=== PATIENT | female | born 1985 | race African-American/Black ===

== ENCOUNTER 2017-08-12 10:32 | Emergency (ER) | payer OTHER ==
[~2017-08-12] VITALS: Ht 175.3 cm; Wt 160.8 kg
[2017-08-12 10:42] VITALS: BP 166/89; PULSE 63; TEMP 36.8; O2SAT 100; Ht 175.3 cm; Wt 160.8 kg
[2017-08-12] MEDS ORDERED: IBUPROFEN 600 MG TAB PO STA (11:00)
--- NOTE | 2017-08-12 11:57 | DIAGNOSTIC IMAGING REPORT ---
LEFT KNEE 3 VIEWS HISTORY: left knee pain/include sunrise COMPARISON: None. FINDINGS: There is no fracture or dislocation. No significant soft tissue swelling. Trace knee effusion. Mild osteoarthritis within the medial compartment of the left knee. Tiny infrapatellar density may be due to the normal vascular structures. IMPRESSION: No fractures. Trace knee effusion. Mild osteoarthritis. Electronically signed by: Barry Muñoz M.D. 08/12/2017 11:56 AM Dictated Date/Time: 08/12/2017 11:54 AM
--- NOTE | 2017-08-12 12:12 | EMERGENCY ROOM VISIT NOTE ---
ED Visit Note First contact with patient: 10:51 CHIEF COMPLAINT: Left knee pain HISTORY OF PRESENT ILLNESS: This 32-year-old female presents the ER with chief complaint of left knee pain for the last month and a half. The patient denies any known injury. The patient states that it swells and feels "tight". The patient states the pain is worse with going down steps. The patient tried an caxj-azw-ryqzzuk brace with slight relief of the pain. The patient states years ago her left knee cap dislocated on 2 different occasions. But the last time was at least 4 years ago. The patient denies any locking or giving out of the knee. The patient did not try to see her family physician for this problem. REVIEW OF SYSTEMS: 6 system review was performed and was negative unless stated otherwise in history of present illness. PMH: The patient is healthy; no significant past medical history SOCIAL HISTORY: Patient lives with her family. The patient denies tobacco use but admits to occasional alcohol use. PHYSICAL EXAM: Vital Signs: Were reviewed Reviewed Nurse's notes. GENERAL: 32- year-old obese female appears in no acute distress. MENTAL STATUS: Alert, oriented, and cooperative. LEFT: KNEE: No gross bony deformity noted. The patient's tenderness palpation over the patella. There is no joint effusion. She has full range of motion of the knee. There is no ligamentous instability. The skin is normal and intact. EMERGENCY DEPARTMENT COURSE: The patient was evaluated. Patient was given Motrin 600 mg by mouth for pain. X-ray of the left knee to include sunrise view was ordered and interpreted by the radiologist and myself. DIAGNOSTICS:LEFT KNEE 3 VIEWS HISTORY: left knee pain/include sunrise COMPARISON: None. FINDINGS: There is no fracture or dislocation. No significant soft tissue swelling. Trace knee effusion. Mild osteoarthritis within the medial compartment of the left knee. Tiny infrapatellar density may be due to the normal vascular structures. IMPRESSION: No fractures. Trace knee effusion. Mild osteoarthritis. Electronically signed by: Barry Muñoz M.D. 08/12/2017 11:56 AM Dictated Date/Time: 08/12/2017 11:54 AM The patient was informed of the findings. The patient was discharged home in stable condition. DIAGNOSIS: Left knee pain DISCHARGE INSTRUCTIONS: Ibuprofen 600 mg every 6 hours with food for pain. Avoid any strenuous exercise until evaluated by orthopedics. Call Dr. Hong today for follow-up appointment. Current/Historical Medications No Active Prescriptions or Reported Meds Allergies Coded Allergies: No Known Allergies (Unverified , 08/12/17) Vital Signs Date Time Temp Pulse Resp B/P (MAP) Pulse Ox O2 Delivery O2 Flow Rate FiO2 08/12/17 10:42 36.8 63 20 166/89 100 Room Air Medications Administered Medications (Trade) Dose Ordered Sig/Ana Route Start Time Stop Time Status Last Admin Dose Admin Ibuprofen (Motrin Tab) 600 mg NOW STAT PO 08/12/17 11:00 08/12/17 11:02 DC 08/12/17 11:10 600 MG Departure Information Prescriptions No Active Prescriptions or Reported Meds Referrals No Doctor, Assigned (PCP) Patient Instructions [facility]
== END 2017-08-12 12:30 | disposition home or self-care (01) ==
LOC: C.EDB 10:36 → C.EDD 12:30
DX: M25.562 Pain in left knee (principal)

== ENCOUNTER 2017-09-14 17:10 | Emergency (ER) | payer OTHER ==
[~2017-09-14] VITALS: Ht 175.3 cm; Wt 124.4 kg
[2017-09-14 17:11] VITALS: TEMP 38.6; Ht 175.3 cm; Wt 124.4 kg
[2017-09-14] MEDS ORDERED: SODIUM CHLORIDE 0.9% 1000ML 1,000 ML IV STA (17:23)
[2017-09-14] MEDS ORDERED: KETOROLAC TROMETHAMINE 30 MG/ML VIAL IV STA (17:24)
[2017-09-14] MEDS ORDERED: DIPH1POW PO (17:25)
[2017-09-14] MEDS ORDERED: IBUP-1050 PO (17:25)
[2017-09-14] MEDS ORDERED: [UNRECOGNIZED DRUG - CODE] MT (17:25)
[2017-09-14] MEDS ORDERED: MAGIC SWIZZLE PO ONE (17:30)
[2017-09-14 17:48] LABS: BASO % 0.3 %; BASO ABS # 0.03 K/uL (0-0.2); EOS % 0.6 %; EOS ABS # 0.07 K/uL (0-0.5); HEMATOCRIT 39.8 % (37-47); HEMOGLOBIN 12.3 g/dL (12.0-16.0); IG# 0.06 K/uL (0.00-0.02); LYMPH % 11.9 %; MEAN CELL VOLUME 75.7 fL (80-100); MEAN CORPUSCULAR HEMOGLOBIN 23.4 pg (25-34); MEAN CORPUSCULAR HGB CONC 30.9 g/dl (32-36); MEAN PLATELET VOLUME 10.4 fL (7.4-10.4); MONO % 7.2 %; MONO ABS # 0.85 K/uL (0.11-0.59); NEUT % 79.5 %; NEUT ABS # 9.35 K/uL (1.4-6.5); PLATELET COUNT 289 K/uL (130-400); RED CELL DISTRIBUTION WIDTH CV 15.8 % (11.5-14.5); RED CELL DISTRIBUTION WIDTH SD 43.3 fL (36.4-46.3); WHITE BLOOD COUNT 11.76 K/uL (4.8-10.8)
[2017-09-14] MEDS ORDERED: LIDOCAINE HCL 2% VISCOUS SOLN 1.25 ML, DiphenhydrAMINE HCL SYRUP 3.125 MG, ALUMINUM/MAG... MT SCH ×4 (18:00)
[2017-09-14 18:10] LABS: ALBUMIN 3.3 gm/dl (3.4-5.0); CALCIUM 8.6 mg/dl (8.5-10.1); CREATININE 0.92 mg/dl (0.60-1.20)
[2017-09-14 18:38] LABS: POTASSIUM 3.9 mmol/L (3.5-5.1); TOTAL PROTEIN 8.4 gm/dl (6.4-8.2)
[2017-09-14 18:46] LABS: INFLUENZA B ANTIGEN Neg for Influ B (NEG)
[2017-09-14] MEDS ORDERED: PENICILLIN V POTASSIUM 250 MG TAB PO ONE (19:15)
[2017-09-14] MEDS ORDERED: ACETAMINOPHEN 500 MG TAB PO STA (19:16)
[2017-09-14] MEDS ORDERED: PENI-82 PO (19:18)
[2017-09-14 19:22] VITALS: BP 127/93; PULSE 106; O2SAT 100
--- NOTE | 2017-09-14 21:03 | EMERGENCY ROOM VISIT NOTE ---
History Report prepared by Dillon: Edwina Newberry Under the Supervision of: Erna KeaneO. First contact with patient: 17:15 Chief Complaint: SORETHROAT Stated Complaint: SORE THROAT, CAN'T SWALLOW, EARS HURT, ABD HURTS History of Present Illness The patient is a 32 year old female who presents to the Emergency Room with complaints of a persistent sore throat for the past 2 days. She rates her discomfort as a 10/10 in severity. She states swallowing is extremely painful and she was unable to take Ibuprofen for her pain prior to arrival. She has not been coughing. She also complains of the chills, ear pain, abdominal pain and weakness. She has never undergone abdominal surgery before. The patient is up to date on her immunizations. She denies any chronic medical problems. The patient denies any headache, change in vision, fevers, chest pain, shortness of breath, nausea, vomiting, diarrhea, pain with urination, and melena. Source of History: patient Onset: 2 days NURSE ORTHOPEDIC Position: throat Symptom Intensity: 10/10 Timing: other (persistent) Modifying Factors (Worsening): other (swallowing) Associated Symptoms: + chills, + abdominal pain, + weakness, No fevers, No headache, No chest pain, No SOB, No nausea, No vomiting, No melena, No diarrhea , No urinary symptoms Review of Systems See HPI for pertinent positives & negatives. A total of 10 systems reviewed and were otherwise negative. Past Medical & Surgical Medical Problems: (1) No significant past medical history Social History Smoking Status: Never Smoker Alcohol Use: occasionally Drug Use: none Marital Status: Housing Status: lives with family Occupation Status: unemployed Current/Historical Medications Scheduled Penicillin V Potassium (Veetids), 500 MG PO TID Scheduled PRN Benzocaine-Menthol (Mouth-Thro (Chloraseptic), 1 IKER MT UD PRN for SORE THROAT Diphenhydramine-Phenylephrine- (Theraflu Severe Cold & Co), 1 DOSE PO UD PRN for illness Ibuprofen (Advil), 600 MG PO UD PRN for Pain or Fever Allergies Coded Allergies: No Known Allergies (Unverified , 09/14/17) Physical Exam Vital Signs Date Time Temp Pulse Resp B/P (MAP) Pulse Ox O2 Delivery O2 Flow Rate FiO2 09/14/17 19:22 106 127/93 100 Room Air 09/14/17 17:11 38.6 127 18 131/73 100 Room Air Physical Exam GENERAL: Sitting on edge of bed bed, alert, morbidly obese, disheveled, in no acute distress, nontoxic EYE EXAM: normal conjunctiva. OROPHARYNX: bilateral tonsillar hypertrophy with exudates, no erythema, lips, buccal mucosa, and tongue normal and mucous membranes are moist NECK: supple, no nuchal rigidity, no adenopathy, non-tender LUNGS: Clear to auscultation. Normal chest wall mechanics HEART: no murmurs, S1 normal and S2 normal ABDOMEN: abdomen soft, non-tender, normo-active bowel sounds, no masses, no rebound or guarding. BACK: Back is symmetrical on inspection and there is no deformity, no midline tenderness, no CVA tenderness. SKIN: no rashes and no bruising UPPER EXTREMITIES: upper extremities are grossly normal. LOWER EXTREMITIES: No pitting edema. NEURO EXAM: Normal sensorium, cranial nerves II-XII grossly intact, normal speech, no gross weakness of arms, no gross weakness of legs. Gross sensation intact. Medical Decision & Procedures Laboratory Results 09/14/17 17:35 Red Blood Count 5.26, Mean Corpuscular Volume 75.7, Mean Corpuscular Hemoglobin 23.4, Mean Corpuscular Hemoglobin Concent 30.9, Mean Platelet Volume 10.4, Neutrophils (%) (Auto) 79.5, Lymphocytes (%) (Auto) 11.9, Monocytes (%) (Auto) 7.2, Eosinophils (%) (Auto) 0.6, Basophils (%) (Auto) 0.3, Neutrophils # (Auto) 9.35, Lymphocytes # (Auto) 1.40, Monocytes # (Auto) 0.85, Eosinophils # (Auto) 0.07, Basophils # (Auto) 0.03 09/14/17 17:35 Test 09/14/17 17:35 White Blood Count 11.76 K/uL (4.8-10.8) Red Blood Count 5.26 M/uL (4.2-5.4) Hemoglobin 12.3 g/dL (12.0-16.0) Hematocrit 39.8 % (37-47) Mean Corpuscular Volume 75.7 fL (80-100) Mean Corpuscular Hemoglobin 23.4 pg (25-34) Mean Corpuscular Hemoglobin Concent 30.9 g/dl (32-36) Platelet Count 289 K/uL (130-400) Mean Platelet Volume 10.4 fL (7.4-10.4) Neutrophils (%) (Auto) 79.5 % Lymphocytes (%) (Auto) 11.9 % Monocytes (%) (Auto) 7.2 % Eosinophils (%) (Auto) 0.6 % Basophils (%) (Auto) 0.3 % Neutrophils # (Auto) 9.35 K/uL (1.4-6.5) Lymphocytes # (Auto) 1.40 K/uL (1.2-3.4) Monocytes # (Auto) 0.85 K/uL (0.11-0.59) Eosinophils # (Auto) 0.07 K/uL (0-0.5) Basophils # (Auto) 0.03 K/uL (0-0.2) RDW Standard Deviation 43.3 fL (36.4-46.3) RDW Coefficient of Variation 15.8 % (11.5-14.5) Immature Granulocyte % (Auto) 0.5 % Immature Granulocyte # (Auto) 0.06 K/uL (0.00-0.02) Anion Gap 8.0 mmol/L (3-11) Est Creatinine Clear Calc Drug Dose 126.3 ml/min Estimated GFR () 96.8 Estimated GFR (Non- 83.6 BUN/Creatinine Ratio 8.0 (10-20) Calcium Level 8.6 mg/dl (8.5-10.1) Total Bilirubin 1.1 mg/dl (0.2-1) Direct Bilirubin 0.2 mg/dl (0-0.2) Aspartate Amino Transf (AST/SGOT) 14 U/L (15-37) Alanine Aminotransferase (ALT/SGPT) 20 U/L (12-78) Alkaline Phosphatase 86 U/L (45-117) Total Protein 8.4 gm/dl (6.4-8.2) Albumin 3.3 gm/dl (3.4-5.0) Lipase 103 U/L (73-393) Influenza Type A Antigen Neg for Influ A (NEG) Influenza Type B Antigen Neg for Influ B (NEG) Date/Time Source Procedure Growth Status 09/14/17 17:35 Throat Group A Streptococcus Screen - Final SPECIMEN POSITIVE FOR GROUP A BETA ST... Complete 09/14/17 17:35 Throat Group A Streptococcus Screen (RAY) - Final Complete Laboratory results per my review. Medications Administered Medications (Trade) Dose Ordered Sig/Ana Route Start Time Stop Time Status Last Admin Dose Admin Sodium Chloride 1,000 ml @ 999 mls/hr Q1H1M STAT IV 09/14/17 17:23 09/14/17 18:23 DC 09/14/17 17:43 999 MLS/HR Ketorolac Tromethamine (Toradol Inj) 30 mg NOW STAT IV 09/14/17 17:24 09/14/17 17:25 DC 09/14/17 17:43 30 MG Lidocaine HCl/ Diphenhydramine HCl/Al Hydroxide/ Mg Hydroxide/ Glycerin/Barcode 1800 MT 09/14/17 18:00 09/14/17 18:01 DC 09/14/17 18:16 5 ML Penicillin V Potassium (Veetids Tab) 500 mg NOW ONCE PO 09/14/17 19:15 09/14/17 19:16 DC 09/14/17 19:25 500 MG Acetaminophen (Tylenol Tab) 1,000 mg NOW STAT PO 09/14/17 19:16 09/14/17 19:17 DC 09/14/17 19:25 1,000 MG ED Course ED COURSE: Vital signs were reviewed and showed febrile and tachycardic. The patients medical record was reviewed The above diagnostic studies were performed and reviewed. ED treatments and interventions as stated above. 1718: The patient was evaluated in room A3. A complete history and physical examination was performed. 1723: NSS 1000 ml @ 999 mls/hr IV. 1724: Toradol 30 mg IV. 1800: Magic Swizzle 5 mL MT. 1815: Veetids Tab 500 mg PO. 1916: Acetaminophen 1000 mg PO. 1920: Upon reevaluation, the patient is feeling and resting comfortably. I discussed my findings with the patient and she understands and agrees with the treatment plan. Based on the patients age, coexisting illnesses, exam and lab findings the decision to treat as an outpatient was made. The patient remained stable while under my care. The patient appeared well at the time of discharge. Medical Decision Differential diagnosis: Etiologies such as viral syndrome, otitis, pharyngitis, pneumonia, influenza, meningitis, urinary tract infection, sepsis, bacteremia, as well as others were entertained. Patient is a 32-year-old female who presents to ER for a severe sore throat. Tonsillar exudates on exam. She is febrile and tachycardic. IV was established and blood work was obtained. Did show mild leukocytosis. CBC is otherwise unremarkable. BMP all LFTs, bilirubin lipase is fairly normal. She had a complete benign abdominal exam. She was given fluids, Tylenol, Toradol and did feel significantly better. She is given penicillin for her positive strep test. Influenza A and B was negative. Based on her symptoms I do believe that this is all related to strep pharyngitis and dehydration. Patient was updated bedside and discharged follow-up with PCP. Discussed with Pt concerning signs and symptoms to watch out for. Pt was instructed to follow up with their PCP and discussed with the patient their option to return to the ED at anytime for persistent or worsening symptoms. The appropriate anticipatory guidance and out-patient management, including indications for return to the emergency department, were explained at length to the patient and understood. Medication Reconcilliation Current Medication List: was personally reviewed by me Blood Pressure Screening Patient's blood pressure: Normal blood pressure Blood pressure disposition: Did not require urgent referral Impression Primary Impression: Strep pharyngitis Scribe Attestation The scribe's documentation has been prepared under my direction and personally reviewed by me in its entirety. I confirm that the note above accurately reflects all work, treatment, procedures, and medical decision making performed by me. Departure Information Dispostion Home / Self-Care Prescriptions Penicillin V Potassium (Veetids) 500 Mg Tab 500 MG PO TID for 10 Days, #30 TAB Prov: Mateo Reddy, 09/14/17 Referrals No Doctor, Assigned (PCP) Patient Instructions ED Strep Pharyngitis Phillip, My [facility] Additional Instructions Please follow up with your primary care doctor with in the next 24 hours. Any worsening of your symptoms, please return to the ED immediately. This includes any fevers greater than 100.4, worsening pain, chest pain, shortness breath, persistent nausea, vomiting, unable to eat or drink, or any other concerning signs or symptoms from your standpoint. Please take Tylenol or Motrin as needed for fevers. Please try to remain as hydrated as possible. Please take antibiotics as prescribed.
== END 2017-09-14 19:33 | disposition home or self-care (01) ==
LOC: C.EDB 17:11 → C.EDA 19:33
DX: J02.0 Streptococcal pharyngitis (principal)

== ENCOUNTER 2017-10-22 20:01 | Emergency (ER) | payer OTHER ==
[~2017-10-22] VITALS: Ht 175.3 cm; Wt 165.0 kg
[~2017-10-22 20:01] MED LIST: DIPH1POW PO; IBUP-1050 PO; [UNRECOGNIZED DRUG - CODE] MT
[2017-10-22 20:08] VITALS: TEMP 36.7; Ht 175.3 cm; Wt 165.0 kg
[2017-10-22] MEDS ORDERED: ACETAMINOPHEN 500 MG TAB PO STA (20:23)
[2017-10-22] MEDS ORDERED: SODIUM CHLORIDE 0.9% 1000ML 2,000 ML IV STA (20:23)
[2017-10-22] MEDS ORDERED: DiphenhydrAMINE HCL 50 MG/ML VIAL IV STA (20:23)
[2017-10-22] MEDS ORDERED: ONDANSETRON INJ 2 MG/ML 2 ML VIAL IV STA (20:23)
--- NOTE | 2017-10-22 20:31 | EMERGENCY ROOM VISIT NOTE ---
History Report prepared by Dillon: Murtaza Alvarado Under the Supervision of: Dr. Francois Solitario M.D. First contact with patient: 20:18 Chief Complaint: ILLNESS Stated Complaint: Abdominal discomfort, nausea History of Present Illness The patient is a 32 year old female who presents to the Emergency Room via EMS with complaints of worsening abdominal pain that she first experienced this morning at 0300, 17 hours prior to arrival. The patient states that her abdominal pain began this morning with "cramping" sensations in her upper abdomen. This cramping abdominal sensation then became "sharp" pains below her bellybutton. She rates these current sharp pains as a 8/10 in severity. She has had one episode of diarrhea today, and notes that she has experienced four separate episodes of emesis. She denies any vaginal bleeding or urinary irregularities. She has not had any fevers. She is currently on Tamiflu as her two children have the flu. The patient is currently 12 weeks , this is her third . The patient has a G:P:A of 3:2:0. Source of History: patient Onset: 17 hours ago Position: abdomen (Below bellybutton) Symptom Intensity: 8/10 Quality: sharp, other (Cramping) Timing: worsening Associated Symptoms: + vomiting, + diarrhea, No fevers, No urinary symptoms Note: Pt is 12 week Review of Systems See HPI for pertinent positives & negatives. A total of 10 systems reviewed and were otherwise negative. Past Medical & Surgical Medical Problems: (1) No significant past medical history Family History Patient denies any past family histories. Social History Smoking Status: Never Smoker Alcohol Use: occasionally Drug Use: none Marital Status: Housing Status: lives with family Occupation Status: unemployed Current/Historical Medications Scheduled Ondasetron Odt (Zofran Odt), 4 MG SL Q6H Scheduled PRN Diphenhydramine-Phenylephrine- (Theraflu Severe Cold & Co), 1 DOSE PO UD PRN for illness Allergies Coded Allergies: No Known Allergies (Unverified , 09/14/17) Physical Exam Vital Signs Date Time Temp Pulse Resp B/P (MAP) Pulse Ox O2 Delivery O2 Flow Rate FiO2 10/22/17 23:14 88 18 117/65 99 10/22/17 22:06 94 18 119/68 97 Room Air 10/22/17 20:46 107 10/22/17 20:08 36.7 118 22 131/77 97 Room Air Physical Exam GENERAL: Patient is in no acute distress. HEENT: No acute trauma, normocephalic atraumatic, mucous membranes moist, no nasal congestion, no scleral icterus. NECK: No stridor, no adenopathy, no meningismus, trachea is midline. LUNGS: Clear to auscultation bilaterally, no wheeze, no rhonchi, breath sounds equal. HEART: Tachycardic rate with a regular rhythm. There are no murmurs. ABDOMEN: Soft, mildly tender to the mid low pelvis, bowel sounds positive, no hernias, no peritonitis. EXTREMITIES: No cyanosis or edema, full range of motion of all the joints without pain or difficulty, no signs for acute trauma. NEUROLOGIC: Oriented x 3, no acute motor or sensory deficits, no focal weakness. SKIN: No rash, no jaundice, no diaphoresis. Medical Decision & Procedures ER Provider Diagnostic Interpretation: Radiology results as stated below per my review and radiologist interpretation: LIMITED (US) CLINICAL HISTORY: Generalized abdominal pain. COMPARISON STUDY: None. FINDINGS: Transabdominal scanning of the fetus was performed with manufacturer's service representative images submitted. There is a single fetus with a crown-rump length of 4.25 cm consistent with an 11 week and 1 day intrauterine gestation. heart rate was 182 bpm. There ovaries were not visualized. No pelvic free fluid. No subchorionic hematoma. The cervix appears closed. IMPRESSION: Single viable 11 week and 1 day intrauterine gestation with a heart rate of 182 bpm. Electronically signed by: Barry Muñoz M.D. 10/22/2017 9:31 PM Dictated Date/Time: 10/22/2017 9:29 PM Laboratory Results 10/22/17 20:45 Red Blood Count 5.03, Mean Corpuscular Volume 76.3, Mean Corpuscular Hemoglobin 24.1, Mean Corpuscular Hemoglobin Concent 31.5, Mean Platelet Volume 9.8, Neutrophils (%) (Auto) 80.5, Lymphocytes (%) (Auto) 11.6, Monocytes (%) (Auto) 7.1, Eosinophils (%) (Auto) 0.2, Basophils (%) (Auto) 0.3, Neutrophils # (Auto) 9.20, Lymphocytes # (Auto) 1.33, Monocytes # (Auto) 0.81, Eosinophils # (Auto) 0.02, Basophils # (Auto) 0.03 10/22/17 20:45 Test 10/22/17 20:40 10/22/17 20:45 Urine Color YELLOW Urine Appearance CLEAR (CLEAR) Urine pH 6.0 (4.5-7.5) Urine Specific [place] 1.024 (1.000-1.030) Urine Protein TRACE (NEG) Urine Glucose (UA) NEG (NEG) Urine Ketones NEG (NEG) Urine Occult Blood NEG (NEG) Urine Nitrite NEG (NEG) Urine Bilirubin NEG (NEG) Urine Urobilinogen NEG (NEG) Urine Leukocyte Esterase NEG (NEG) Urine WBC (Auto) 1-5 /hpf (0-5) Urine RBC (Auto) 0-4 /hpf (0-4) Urine Hyaline Casts (Auto) 1-5 /lpf (0-5) Urine Epithelial Cells (Auto) >30 /lpf (0-5) Urine Bacteria (Auto) NEG (NEG) White Blood Count 11.43 K/uL (4.8-10.8) Red Blood Count 5.03 M/uL (4.2-5.4) Hemoglobin 12.1 g/dL (12.0-16.0) Hematocrit 38.4 % (37-47) Mean Corpuscular Volume 76.3 fL (80-100) Mean Corpuscular Hemoglobin 24.1 pg (25-34) Mean Corpuscular Hemoglobin Concent 31.5 g/dl (32-36) Platelet Count 275 K/uL (130-400) Mean Platelet Volume 9.8 fL (7.4-10.4) Neutrophils (%) (Auto) 80.5 % Lymphocytes (%) (Auto) 11.6 % Monocytes (%) (Auto) 7.1 % Eosinophils (%) (Auto) 0.2 % Basophils (%) (Auto) 0.3 % Neutrophils # (Auto) 9.20 K/uL (1.4-6.5) Lymphocytes # (Auto) 1.33 K/uL (1.2-3.4) Monocytes # (Auto) 0.81 K/uL (0.11-0.59) Eosinophils # (Auto) 0.02 K/uL (0-0.5) Basophils # (Auto) 0.03 K/uL (0-0.2) RDW Standard Deviation 47.6 fL (36.4-46.3) RDW Coefficient of Variation 17.3 % (11.5-14.5) Immature Granulocyte % (Auto) 0.3 % Immature Granulocyte # (Auto) 0.04 K/uL (0.00-0.02) Anion Gap 7.0 mmol/L (3-11) Est Creatinine Clear Calc Drug Dose 157.8 ml/min Estimated GFR () 103.6 Estimated GFR (Non- 89.4 BUN/Creatinine Ratio 9.5 (10-20) Calcium Level 8.8 mg/dl (8.5-10.1) Total Bilirubin 0.8 mg/dl (0.2-1) Aspartate Amino Transf (AST/SGOT) 9 U/L (15-37) Alanine Aminotransferase (ALT/SGPT) 15 U/L (12-78) Alkaline Phosphatase 71 U/L (45-117) Total Protein 8.3 gm/dl (6.4-8.2) Albumin 2.9 gm/dl (3.4-5.0) Globulin 5.4 gm/dl (2.5-4.0) Albumin/Globulin Ratio 0.5 (0.9-2) Lipase 120 U/L (73-393) Human Chorionic Gonadotropin, Quant 55394 mIU/mL Laboratory results reviewed by me. Medications Administered Medications (Trade) Dose Ordered Sig/Ana Route Start Time Stop Time Status Last Admin Dose Admin Sodium Chloride 2,000 ml @ 999 mls/hr Q2H1M STAT IV 10/22/17 20:23 10/22/17 22:23 DC 10/22/17 20:58 999 MLS/HR Ondansetron HCl (Zofran Inj) 4 mg NOW STAT IV 10/22/17 20:23 10/22/17 20:26 DC 10/22/17 20:58 4 MG Acetaminophen (Tylenol Tab) 1,000 mg NOW STAT PO 10/22/17 20:23 10/22/17 20:26 DC 10/22/17 20:59 1,000 MG Diphenhydramine HCl (Benadryl Inj) 25 mg NOW STAT IV 10/22/17 20:23 10/22/17 20:26 DC 10/22/17 20:57 25 MG Ondansetron HCl (ZOFRAN ODT 4MG Home Pack) 1 homepack UD ONCE PO 10/22/17 23:00 10/22/17 23:01 DC 10/22/17 23:00 1 HOMEPACK ED Course 2019: The patient was evaluated in room A4B. A complete history and physical exam was performed. 2022: Ordered Benadryl 25 mg IV, Tylenol 1000 mg PO, Zofran 4 mg IV, Sodium Chloride 2000 mL @ 999 mL/hr IV. 2241: Reevaluated the patient. Discussed results and discharge instructions: She verbalized understanding and agreement. The patient is ready for discharge. 2299: Ordered Zofran 1 homepack PO. Medical Decision Differential Diagnosis includes; Dehydration, viral illness, food borne illness, electrolyte imbalance, UTI, miscarriage, ectopic . There is a mild leukocytosis, possibly consistent with her vomiting, possibly consistent with the itself. No concerning anemia. No significant electrolyte abnormally, kidney failure or hepatitis. There was no pancreatitis. Urinalysis did not show infection. Pelvic ultrasound showed an 11 week 1 day intrauterine viable fetus. The patient was given IV Zofran, IV Benadryl, IV saline and oral Tylenol. She feels markedly better. I think she can be discharged. Her illness is likely viral as she's had both vomiting and diarrhea. The cramping is I believe intestinal, not uterine. The patient was encouraged to return for worsening symptoms or vaginal bleeding. She will follow with OB, a bland diet was suggested, a few Zofran were given for nausea control. Medication Reconcilliation Current Medication List: was personally reviewed by me Blood Pressure Screening Patient's blood pressure: Normal blood pressure Impression Primary Impression: Nausea, vomiting, and diarrhea Additional Impressions: Dehydration Scribe Attestation The scribe's documentation has been prepared under my direction and personally reviewed by me in its entirety. I confirm that the note above accurately reflects all work, treatment, procedures, and medical decision making performed by me. Departure Information Dispostion Home / Self-Care Prescriptions Ondasetron Odt (ZOFRAN ODT) 4 Mg Tab 4 MG SL Q6H for Nausea, #6 TAB Prov: Francois Solitario M.D. 10/22/17 Referrals Summer Carroll M.D. (PCP) Forms HOME CARE DOCUMENTATION FORM, IMPORTANT VISIT INFORMATION, WORK / SCHOOL INSTRUCTIONS Patient Instructions My [employer] Additional Instructions zofran as needed for nausea--1 tab every 6 hours bland diet---crackers, soup, toast, gatorade fluids rest tylenol for pain return for worsening symptoms follow with office assistance for a recheck 2 days off of work Problem Qualifiers
[2017-10-22 20:57] LABS: BASO % 0.3 %; BASO ABS # 0.03 K/uL (0-0.2); EOS % 0.2 %; EOS ABS # 0.02 K/uL (0-0.5); HEMATOCRIT 38.4 % (37-47); HEMOGLOBIN 12.1 g/dL (12.0-16.0); IG# 0.04 K/uL (0.00-0.02); LYMPH % 11.6 %; LYMPH ABS # 1.33 K/uL (1.2-3.4); MEAN CELL VOLUME 76.3 fL (80-100); MEAN CORPUSCULAR HEMOGLOBIN 24.1 pg (25-34); MEAN CORPUSCULAR HGB CONC 31.5 g/dl (32-36); MEAN PLATELET VOLUME 9.8 fL (7.4-10.4); MONO % 7.1 %; MONO ABS # 0.81 K/uL (0.11-0.59); NEUT % 80.5 %; PLATELET COUNT 275 K/uL (130-400); RED CELL DISTRIBUTION WIDTH CV 17.3 % (11.5-14.5); RED CELL DISTRIBUTION WIDTH SD 47.6 fL (36.4-46.3); WHITE BLOOD COUNT 11.43 K/uL (4.8-10.8)
[2017-10-22 21:17] LABS: ALBUMIN 2.9 gm/dl (3.4-5.0); CALCIUM 8.8 mg/dl (8.5-10.1); CREATININE 0.87 mg/dl (0.60-1.20); POTASSIUM 3.6 mmol/L (3.5-5.1)
[2017-10-22 21:19] LABS: TOTAL PROTEIN 8.3 gm/dl (6.4-8.2)
--- NOTE | 2017-10-22 21:33 | DIAGNOSTIC IMAGING REPORT ---
LIMITED (US) CLINICAL HISTORY: Generalized abdominal pain. COMPARISON STUDY: None. FINDINGS: Transabdominal scanning of the fetus was performed with surgical device sales representative images submitted. There is a single fetus with a crown-rump length of 4.25 cm consistent with an 11 week and 1 day intrauterine gestation. heart rate was 182 bpm. There ovaries were not visualized. No pelvic free fluid. No subchorionic hematoma. The cervix appears closed. IMPRESSION: Single viable 11 week and 1 day intrauterine gestation with a heart rate of 182 bpm. Electronically signed by: Barry Muñoz M.D. 10/22/2017 9:31 PM Dictated Date/Time: 10/22/2017 9:29 PM
[2017-10-22] MEDS ORDERED: ONDA4TAB10 SL (22:49)
[2017-10-22] MEDS ORDERED: ONDANSETRON HOME PACK 4MG OD TAB PO ONE (23:00)
[2017-10-22 23:14] VITALS: BP 117/65; PULSE 88; O2SAT 99
== END 2017-10-22 23:15 | disposition home or self-care (01) ==
LOC: EDBD 20:01 → C.EDA 20:03
DX: O21.8 Other vomiting complicating pregnancy (principal); O99.89 Other specified diseases and conditions complicating pregnancy, childbirth and the puerperium; O99.411 Diseases of the circulatory system complicating pregnancy, first trimester; O99.281 Endocrine, nutritional and metabolic diseases complicating pregnancy, first trimester; Z3A.11 11 weeks gestation of pregnancy

== ENCOUNTER → 2017-10-29 | Outpatient (CLI) | payer OTHER ==
[~2017-10-29] MED LIST changes: -IBUP-1050 PO; +ONDA4TAB10 SL; -[UNRECOGNIZED DRUG - CODE] MT
== END | disposition home or self-care (01) ==
LOC: C.PAPS 11:17
PROVIDERS: ATTEND Obstetrics & Gynecology
DX: Z12.4 Encounter for screening for malignant neoplasm of cervix (principal)

== ENCOUNTER → 2017-10-29 | Outpatient (CLI) | payer OTHER ==
[2017-10-29 12:17] LABS: BASO % 0.4 %; BASO ABS # 0.03 K/uL (0-0.2); EOS % 1.3 %; EOS ABS # 0.09 K/uL (0-0.5); IG# 0.05 K/uL (0.00-0.02); LYMPH % 32.5 %; LYMPH ABS # 2.25 K/uL (1.2-3.4); MEAN CELL VOLUME 76.1 fL (80-100); MEAN CORPUSCULAR HEMOGLOBIN 23.9 pg (25-34); MEAN CORPUSCULAR HGB CONC 31.4 g/dl (32-36); MEAN PLATELET VOLUME 9.6 fL (7.4-10.4); MONO % 6.9 %; MONO ABS # 0.48 K/uL (0.11-0.59); NEUT % 58.2 %; NEUT ABS # 4.03 K/uL (1.4-6.5); PLATELET COUNT 291 K/uL (130-400); RED CELL DISTRIBUTION WIDTH CV 16.9 % (11.5-14.5); RED CELL DISTRIBUTION WIDTH SD 46.5 fL (36.4-46.3); WHITE BLOOD COUNT 6.93 K/uL (4.8-10.8)
== END | disposition home or self-care (01) ==
LOC: C.LAB1850 10:27
PROVIDERS: ATTEND Obstetrics & Gynecology
DX: Z34.91 Encounter for supervision of normal pregnancy, unspecified, first trimester (principal); Z3A.00 Weeks of gestation of pregnancy not specified